=== PATIENT | female | born 1950 | race Caucasian/White ===

== ENCOUNTER → 2018-03-14 | Outpatient (CLI) | payer MEDICARE, BC | END | disposition home or self-care (01) | LOC: CFH 07:25 | PROVIDERS: ATTEND Nurse Practitioner Family | DX: I48.91 Unspecified atrial fibrillation (principal) | CPT/HCPCS: 78452; 93017; A9502 ==

== ENCOUNTER → 2018-04-11 | Outpatient (CLI) | payer MEDICARE, BC ==
[~2018-04-11] MED LIST: ACET325T14 PO; APIX5TAB PO; FLEC50TA25 PO; METO25TA91 PO; OMNIPAQUE 350 MG/ML, 150 ML BOTTLE ONE; RIVA20TA PO
== END | disposition home or self-care (01) ==
LOC: CFH 11:10
PROVIDERS: ATTEND Internal Medicine Cardiovascular Disease
DX: I48.91 Unspecified atrial fibrillation (principal); Z85.3 Personal history of malignant neoplasm of breast
CPT/HCPCS: 71046; 75572; Q9967; 36415; 80053; 85025

== ENCOUNTER → 2018-04-11 | Outpatient (CLI) | payer MEDICARE, BC ==
[~2018-04-11] MED LIST changes: -OMNIPAQUE 350 MG/ML, 150 ML BOTTLE ONE
== END | disposition home or self-care (01) ==
LOC: STAR 12:46
PROVIDERS: ATTEND Internal Medicine Cardiovascular Disease
DX: Z01.818 Encounter for other preprocedural examination (principal); I48.91 Unspecified atrial fibrillation; Z88.0 Allergy status to penicillin; Z88.2 Allergy status to sulfonamides
CPT/HCPCS: 36415; 80053; 85025

== ENCOUNTER 2018-04-16 08:29 | Observation (INO) | payer MEDICARE, BC ==
[2018-04-11 13:36] VITALS: BP 114/62
[2018-04-11 13:42] LABS: BASOPHILS # (AUTO) 0.01 x10^3/uL (0-0.1); BASOPHILS % (AUTO) 0 % (0-1); EOSINOPHILS # (AUTO) 0.09 x10^3/uL (0-0.4); EOSINOPHILS % (AUTO) 1 % (1-7); LYMPHOCYTES # (AUTO) 1.37 x10^3/uL (1-3.4); LYMPHOCYTES % (AUTO) 22 % (22-44); MD NO; MEAN CORPUSCULAR HEMOGLOBIN 29.3 pg (27.0-34.8); MEAN CORPUSCULAR HGB CONC 33.6 g/dL (32.4-35.8); MEAN CORPUSCULAR VOLUME 87.3 fL (80-100); MEAN PLATELET VOLUME 9.1 fL (7.4-10.4); MONOCYTES # (AUTO) 0.61 x10^3/uL (0.2-0.8); MONOCYTES % (AUTO) 10 % (2-9); NEUTROPHILS % (AUTO) 66 % (42-75); PLATELET COUNT 248 x10^3/uL (130-400); RED BLOOD COUNT 5.22 x10^6/uL (3.82-5.3); RED CELL DISTRIBUTION WIDTH 13.1 % (9.6-15.2)
[2018-04-11 13:54] LABS: ALBUMIN 4.1 g/dL (3.4-5.0); ANION GAP 6 mmol/L (5-15); CALCIUM 8.6 mg/dL (8.5-10.1); CHLORIDE 99 mmol/L (98-107)
[2018-04-11 13:57] LABS: ALANINE AMINOTRANSFERASE 42 U/L (12-78); ALKALINE PHOSPHATASE 113 U/L (45-117); BILIRUBIN,TOTAL 0.3 mg/dL (0.2-1.0); CREATININE 0.85 mg/dL (0.55-1.02); TOTAL PROTEIN 7.5 g/dL (6.4-8.2)
[~2018-04-16] VITALS: Ht 170.2 cm; Wt 60.0 kg
[~2018-04-16 08:29] MED LIST changes: -ACET325T14 PO; -APIX5TAB PO; +FENTANYL PF 250 MCG/5ML ONE; +MIDAZOLAM 1 MG/ML, 2ML ONE
[2018-04-16] MEDS ORDERED: SODIUM CHLORIDE 0.9% 1,000 ML IV SCH ×2 (08:53→09:00)
[2018-04-16] MEDS ORDERED: HEPARIN 1,000 UNITS/ML, 10ML ONE ×3 (09:26→12:26)
[2018-04-16] MEDS ORDERED: DEXAMETHASONE 4 MG/ML, 1ML ONE ×2 (09:33→12:26)
[2018-04-16] MEDS ORDERED: EPHEDRINE 50 MG/ML, 1ML ONE (09:33)
[2018-04-16] MEDS ORDERED: ROCURONIUM 10 MG/ML,10ML ONE (09:33)
[2018-04-16] MEDS ORDERED: VASOPRESSIN 20 UNIT/ML, 1ML ONE (10:16)
[2018-04-16] MEDS ORDERED: PROTAMINE SULFATE 10 MG/ML, 5ML ONE (12:14)
[2018-04-16] MEDS ORDERED: PROPOFOL 10 MG/ML, 20ML ONE (12:26)
[2018-04-16] MEDS ORDERED: ONDANSETRON 2MG/ML, 2ML ONE (12:26)
[2018-04-16] MEDS ORDERED: APIXABAN 5 MG TABLET ONE (12:29)
[2018-04-16] MEDS: APIXABAN 5 MG TABLET PO SCH (12:51)
[2018-04-16] MEDS ORDERED: FENTANYL PF 100 MCG/2ML ONE (12:57)
[2018-04-16] MEDS ORDERED: OXYcodone 5 MG/5 ML ORAL.SOL UDC ONE (12:57)
[2018-04-16] MEDS ORDERED: OXYcodone 5 MG/5 ML ORAL.SOL UDC PO PRN (13:00)
[2018-04-16] MEDS ORDERED: LABETALOL 5MG/ML, 20ML IV PRN (13:00)
[2018-04-16] MEDS ORDERED: ACETAMINOPHEN 325 MG TABLET PO PRN (13:00)
[2018-04-16] MEDS ORDERED: MIDAZOLAM 1 MG/ML, 2ML IV PRN (13:00)
[2018-04-16] MEDS ORDERED: PROMETHAZINE 12.5 MG SUPP PR PRN (13:00)
[2018-04-16] MEDS ORDERED: ALBUTEROL SULFATE 2.5 MG/3 ML NPPB PRN (13:00)
[2018-04-16] MEDS ORDERED: METOPROLOL 1 MG/ML, 5ML IV PRN (13:00)
[2018-04-16] MEDS ORDERED: ONDANSETRON 2MG/ML, 2ML IV PRN (13:00)
[2018-04-16] MEDS ORDERED: HYDROmorphone 1 MG/ML, 1ML IV PRN (13:00)
[2018-04-16] MEDS ORDERED: MORPHINE SULFATE 4 MG/ML, 1ML IVPush PRN (13:00)
[2018-04-16] MEDS ORDERED: hydrALAzine 20 MG/ML, 1ML IV PRN (13:00)
[2018-04-16] MEDS ORDERED: PROMETHAZINE 25 MG/ML, 1ML IV PRN (13:00)
[2018-04-16] MEDS ORDERED: MEPERIDINE/PF 25MG/0.5ML IVPush PRN (13:00)
[2018-04-16] MEDS ORDERED: LORazepam 2 MG/ML, 1ML IVPush PRN (13:00)
[2018-04-16] MEDS ORDERED: ONDANSETRON ODT 8 MG PO PRN (13:00)
[2018-04-16] MEDS ORDERED: HALOPERIDOL 5 MG/ML IV PRN (13:00)
[2018-04-16] MEDS: FENTANYL PF 100 MCG/2ML IV PRN ×2 (13:05→13:11)
[2018-04-16 14:32] VITALS: BP 82/58
[2018-04-16] MEDS: ACETAMINOPHEN 325 MG TABLET PO PRN (14:42)
[2018-04-16 17:06] VITALS: BP 84/58
[2018-04-16 19:37] VITALS: BP 96/62
[2018-04-16] MEDS ORDERED: TEMAZEPAM 15 MG CAPSULE ONE (21:08)
[2018-04-16] MEDS: FLECAINIDE 50MG TABLET PO SCH (21:09)
[2018-04-16] MEDS ORDERED: TEMAZEPAM 15 MG CAPSULE PO PRN (21:30)
[2018-04-17] MEDS: ACETAMINOPHEN 325 MG TABLET PO PRN (00:11)
[2018-04-17 00:17] VITALS: BP 86/48
[2018-04-17 06:58] VITALS: BP 97/61
[2018-04-17] MEDS: FLECAINIDE 50MG TABLET PO SCH (08:28)
[2018-04-17] MEDS: APIXABAN 5 MG TABLET PO SCH (08:28)
[2018-04-17] MEDS ORDERED: METOPROLOL SUCCINATE 25 MG TAB.ER.24H PO SCH (09:00)
[2018-04-17] MEDS ORDERED: ACET325T14 PO (09:52)
[2018-04-17] MEDS ORDERED: APIX5TAB PO (10:29)
== END 2018-04-17 11:20 | disposition home or self-care (01) ==
LOC: CACL 08:29 → ORIP 12:43 → 5SO 13:41 → DCLOUNGE 04-17 10:44
PROVIDERS: ADMIT Internal Medicine Cardiovascular Disease; ATTEND Internal Medicine Cardiovascular Disease
DX: I48.91 Unspecified atrial fibrillation (principal); I48.92 Unspecified atrial flutter; I31.3 Pericardial effusion (noninflammatory); E78.00 Pure hypercholesterolemia, unspecified
CPT/HCPCS: 85347; 93005; 93306; 93312; 93321; 93325; 93613; 93655; 93656; 93662; C1730; C1732; C1759; C1766; C1893; C1894; G0378; J1100; J1644; J2250; J2405; J2704; J2720; J3010; 36415; 80053; 85025

== ENCOUNTER 2018-05-11 12:24 | Day surgery (SDC) | payer MEDICARE, BC ==
[~2018-05-11] VITALS: Ht 170.2 cm; Wt 62.0 kg
[~2018-05-11 12:24] MED LIST changes: +ACET325T14 PO; +APIX5TAB PO; -FENTANYL PF 250 MCG/5ML ONE; -MIDAZOLAM 1 MG/ML, 2ML ONE
[2018-05-11] MEDS ORDERED: SODIUM CHLORIDE 0.9% 500 ML IV PRN (13:22)
[2018-05-11 13:44] VITALS: BP 104/62
[2018-05-11 13:57] LABS: BASOPHILS # (AUTO) 0.03 x10^3/uL (0-0.1); BASOPHILS % (AUTO) 1 % (0-1); EOSINOPHILS % (AUTO) 2 % (1-7); LYMPHOCYTES # (AUTO) 1.73 x10^3/uL (1-3.4); LYMPHOCYTES % (AUTO) 31 % (22-44); MD NO; MEAN CORPUSCULAR HEMOGLOBIN 28.6 pg (27.0-34.8); MEAN CORPUSCULAR HGB CONC 33.2 g/dL (32.4-35.8); MEAN CORPUSCULAR VOLUME 86.3 fL (80-100); MEAN PLATELET VOLUME 8.9 fL (7.4-10.4); MONOCYTES # (AUTO) 0.63 x10^3/uL (0.2-0.8); MONOCYTES % (AUTO) 12 % (2-9); NEUTROPHILS # (AUTO) 3.05 x10^3/uL (1.8-6.8); NEUTROPHILS % (AUTO) 55 % (42-75); PLATELET COUNT 245 x10^3/uL (130-400); RED BLOOD COUNT 4.99 x10^6/uL (3.82-5.3); RED CELL DISTRIBUTION WIDTH 13.3 % (9.6-15.2)
[2018-05-11] MEDS ORDERED: PROPOFOL 10 MG/ML, 20ML ONE (14:05)
[2018-05-11] MEDS ORDERED: FLEC100T PO (14:05)
[2018-05-11 14:08] LABS: ANION GAP 6 mmol/L (5-15); CALCIUM 8.4 mg/dL (8.5-10.1); CHLORIDE 109 mmol/L (98-107); CREATININE 0.62 mg/dL (0.55-1.02)
== END 2018-05-11 15:23 | disposition home or self-care (01) ==
LOC: CACL 12:24
PROVIDERS: ATTEND Internal Medicine Cardiovascular Disease
DX: I48.92 Unspecified atrial flutter (principal); I48.91 Unspecified atrial fibrillation; Z88.1 Allergy status to other antibiotic agents; Z88.0 Allergy status to penicillin
CPT/HCPCS: 36415; 80048; 85025; 92960; J2704

== ENCOUNTER → 2019-05-08 | Outpatient (CLI) | payer MEDICARE, BC ==
[~2019-05-08] MED LIST changes: +FLEC100T PO
== END | disposition home or self-care (01) ==
LOC: CFH 11:21
PROVIDERS: ATTEND Nurse Practitioner Family
DX: R06.02 Shortness of breath (principal); Z82.49 Family history of ischemic heart disease and other diseases of the circulatory system
CPT/HCPCS: 36415; 85379

== ENCOUNTER → 2019-05-22 | Outpatient (CLI) | payer MEDICARE, BC | END | disposition home or self-care (01) | LOC: CFH 07:36 | PROVIDERS: ATTEND Nurse Practitioner Family | DX: I48.91 Unspecified atrial fibrillation (principal) | CPT/HCPCS: 93306 ==

== ENCOUNTER 2019-06-05 12:38 | Outpatient (CLI) | payer MEDICARE, BC ==
[2019-06-05 13:08] LABS: CREATININE 0.65 mg/dL (0.55-1.02)
[2019-06-05] MEDS ORDERED: OMNIPAQUE 350 MG/ML, 100ML BOTTLE ONE (15:00)
== END 2019-06-05 23:59 | disposition home or self-care (01) ==
LOC: RAD 12:38
PROVIDERS: ATTEND Nurse Practitioner Family
DX: I48.91 Unspecified atrial fibrillation (principal); K44.9 Diaphragmatic hernia without obstruction or gangrene
CPT/HCPCS: 36415; 71275; 82565; Q9967